=== PATIENT | male | born 1960 | race Caucasian/White ===

== ENCOUNTER 2017-03-29 06:47 | Emergency (ER) | payer BC ==
[2017-03-29] MEDS ORDERED: diphenhydrAMINE 25 MG CAP ONE (07:32)
[2017-03-29] MEDS ORDERED: predniSONE 20 MG TAB ONE (07:32)
[2017-03-29] MEDS ORDERED: Clindamycin 150 MG CAP ONE (07:32)
== END 2017-03-29 08:40 | disposition home or self-care (01) ==
LOC: MADERS 06:47
DX: L03.90 Cellulitis, unspecified (principal); L30.9 Dermatitis, unspecified; F17.220 Nicotine dependence, chewing tobacco, uncomplicated; I10 Essential (primary) hypertension
CPT/HCPCS: 99282; J7506